=== PATIENT | male | born 1930 | race Caucasian/White ===

== ENCOUNTER 2019-05-18 20:30 | Emergency (ER) | payer MEDICARE, OTHER ==
--- OUTSIDE RECORDS SUMMARY | 2019-05-18 21:16 | XMS REPORT | Summary of Care ---
:1930 Author Organization [facility] Address 1 [facility] [address] [address] Care Team Providers Name Role Phone Osvaldo Tenorio Primary Care Provider Reason for Visit Reason Comments Heartburn f/u; s/s periodically continues Memory Loss f/u; s/s stable Nocturia f/u up 2-3 times during night to go to bathroom; periodically has issues. Neuropathy c/o bilateral legs and feet decreased feeling especially when getting up. Medication Refill need refill on lorazepam. istop | Reference #: [id number] Labs Only f/u last done :05/16/19 Encounter Details Date Type Department Care Team Description 05/17/2019 Office Visit Osvaldo Gonzalez, Urinary frequency (Primary Dx); [address] Bipolar disorder, in full remission, most recent episode hypomanic (HCC); [place] [address] [facility] Gastroesophageal reflux disease, esophagitis presence not specified; [phone] [facility] Vitamin B12 deficiency; [place] [address] Erectile dysfunction, unspecified erectile dysfunction type [phone] Allergies Active Allergy Reactions Severity Noted Date Comments Carbidopa Unknown Reaction 08/10/2018 Ciprofloxacin Hcl Unknown Reaction 08/10/2018 Erythromycin Unknown Reaction 08/10/2018 Horse-Derived Products Unknown Reaction 08/10/2018 Penicillins Unknown Reaction 08/10/2018 Sulfamethizole Unknown Reaction 08/10/2018 documented as of this encounter (statuses as of 05/17/2019) Medications Medication Sig Dispensed Refills Start End Date Status Date fexofenadine Take 60 mg by 0 Active (ALESSIO ALLERGY) mouth TWO TIMES 60 MG Oral Tab DAILY NEEDED. bisacodyl Place 10 mg per 0 Active (DULCOLAX) 10 MG rectum DAILY Rectal Suppos NEEDED. oxybutynin Take 5 mg by 0 Active (DITROPAN XL) 5 MG mouth DAILY. Oral TABLET SR 24 HR ibuprofen (MOTRIN) Take 200 mg by 0 Active 200 MG Oral Tab mouth EVERY SIX HOURS NEEDED for Pain. Vardenafil HCl Take by mouth 0 Active (LEVITRA) 20 MG DAILY Oral Tab NEEDED. polyethylene glycol Take 17 g by 0 Active (MIRALAX) Oral mouth DAILY Powder NEEDED. PSEUDOEPHEDRINE-GG Take by mouth 0 Active (MUCINEX D) 60-600 TWO TIMES DAILY MG Oral TABLET SR NEEDED. 12 HR mometasone [place] 1 [place] 0 Active (NASONEX) 50 in nose DAILY MCG/ACT Nasal NEEDED. Suspension budesonide-formoter Take 1 INHL by 0 Active ol fumarate inhalation (SYMBICORT) 80-4.5 TWICE DAILY. MCG/ACT Inhalation Aerosol calcium carbonate Take 2-3 Tabs 0 Active (TUMS) 500 MG Oral by mouth DAILY. Chew Tab Cyanocobalamin Take by mouth 0 Active (VITAMIN B-12) 1000 DAILY. MCG Oral Tab Multiple Take by mouth 0 Active Vitamins-Minerals DAILY. (CENTRUM SILVER) Oral Tab Ergocalciferol Take by mouth 0 Active (VITAMIN D2) 2000 DAILY. units Oral Tab alpha-tocopherol Take 1,000 0 Active (VITAMIN E) 1000 Units by mouth UNIT Oral Cap DAILY. Mirabegron ER Take by mouth 0 Active (MYRBETRIQ) 50 MG DAILY. Oral TABLET SR 24 HR lithium (LITHOBID) Take 1 Tab by 45 Tab 11 Active 300 MG Oral Tab CR mouth 9 DIRECTED. Alternate 300mg every other night with 600mg clotrimazole 5 drops into 30 mL 1 Active (LOTRIMIN) 1 % left ear bid 9 Apply externally Solution pantoprazole Take 1 Tab by 60 Tab 11 Active (PROTONIX) 40 MG mouth TWICE 9 Oral Tab EC DAILY. Tamsulosin HCl Take 1 Cap by 30 Cap 11 Active (FLOMAX) 0.4 MG mouth DAILY. 9 Oral Cap Vilazodone HCl Take 1 Tab by 30 Tab 11 Active (VIIBRYD) 40 MG mouth EVERY 9 Oral Tab MORNING. LORazepam (ATIVAN) Take 1 Tab by 30 Tab 0 Active 0.5 MG Oral Tab mouth DAILY 9 NEEDED (for anxiety). Max Daily Amount: 0.5 mg. Sildenafil Citrate Take 1 Tab by 18 Tab 1 Active 25 MG Oral Tab mouth DAILY 9 NEEDED (e.d.). LORazepam (ATIVAN) TAKE 1 TAB BY 30 Tab 0 05/17/20 Discontinued 0.5 MG Oral Tab MOUTH DAILY 9 19 (Reorder) NEEDED (FOR ANXIETY). MAX DAILY AMOUNT: 0.5 MG. documented as of this encounter (statuses as of 05/17/2019) Active Problems Problem Noted Date Mild intermittent asthma without complication 09/21/2018 Irritable bladder 08/14/2018 DJD (degenerative joint disease) of knee 05/19/2014 Knee pain, left 04/08/2014 Bipolar disorder, in full remission, most recent episode hypomanic Gastroesophageal reflux disease BPH without obstruction/lower urinary tract symptoms Hemangioma of skin and subcutaneous tissue Erectile dysfunction Pancytopenia Sciatica Allergic rhinitis Vitamin B12 deficiency Anxiety Muscle spasm Drug-induced tremor Difficulty walking Mild cognitive impairment Cough Constipation Depression documented as of this encounter (statuses as of 05/17/2019) Immunizations Name Administration Dates Next Due Influenza Vaccine High Dose 03/28/2019, 03/29/2018, 04/05/2017 documented as of this encounter Social History Tobacco Use Types Packs/Day Years Used Date Never Smoker Smokeless Tobacco: Never Used Alcohol Use Drinks/Week oz/Week Comments No Sex Assigned at Date Recorded Not on file Job Start Date Occupation Industry Not on file Not on file Not on file Travel History Travel Start Travel End No recent travel history available. documented as of this encounter Last Filed Vital Signs Vital Sign Reading Time Taken Comments Blood Pressure 138/68 05/17/2019 3:44 PM EST Pulse 60 05/17/2019 3:44 PM EST Temperature - - Respiratory Rate - - Oxygen Saturation - - Inhaled Oxygen Concentration - - Weight 84.8 kg (187 lb) 05/17/2019 3:44 PM EST Height - - Body Mass Index 28.43 01/18/2019 2:07 PM EDT documented in this encounter Progress Notes Osvaldo Tenorio MD - 05/17/2019 3:40 PM EST PATIENT: Jere Clark : 1930 DATE OF SERVICE: 05/17/2019 CHIEF COMPLAINT: Chief Complaint Patient presents with Heartburn f/u; s/s periodically continues Memory Loss f/u; s/s stable Nocturia f/u up 2-3 times during night to go to bathroom; periodically has issues. Neuropathy c/o bilateral legs and feet decreased feeling especially when getting up. Medication Refill need refill on lorazepam. istop | Reference #: [id number] Labs Only f/u last done :05/16/19 Subjective HISTORY OF PRESENT ILLNESS: Jere Clark is a 89-y.o. male. HPI He returns in follow-up of his multiple medical problems. He requests lorazepam which works well. He does not need very much of it. There are no side effects. Pantoprazole 40 mg twice a day helps gastroesophageal reflux, but sometimes he has breakthrough symptoms. I urged him to use Tums as needed. He has nocturia x3 and visits with Dr. Herrera and I told him that he may have difficulty getting thisto improve further since he is already on medical therapy with oxybutynin, mirabegron, and tamsulosin and I think he would be a suboptimal surgical candidate for any surgical intervention other than that which was required urgently to preserve renal function. In addition, patient complains of erectile failure and requests prescription for sildenafil. I haveordered 25 mg tablet but told him to not use it on a day he has taken tamsulosin. He needs to stop tamsulosin if he is to take the sildenafil Past Medical History: Diagnosis Date Allergic rhinitis Anxiety Bipolar disorder, in full remission, most recent episode hypomanic (HCC) BPH without obstruction/lower urinary tract symptoms Constipation Cough Depression Difficulty walking Drug-induced tremor Erectile dysfunction Gastroesophageal reflux disease Hemangioma of skin and subcutaneous tissue Left knee pain Mild cognitive impairment Muscle spasm Pancytopenia (HCC) Sciatica Vitamin B12 deficiency History reviewed. No pertinent family history. Current Outpatient Medications Medication Sig alpha-tocopherol (VITAMIN E) 1000 UNIT Oral Cap Take 1,000 Units by mouth DAILY. bisacodyl (DULCOLAX) [address] 10 mg per rectum DAILY NEEDED. budesonide-formoterol fumarate (SYMBICORT) 80-4.5 MCG/ACT Inhalation Aerosol Take 1 INHL by inhalation TWICE DAILY. calcium carbonate (TUMS) 500 MG Oral Chew Tab Take 2-3 Tabs by mouth DAILY. clotrimazole (LOTRIMIN) 1 % Apply externally Solution 5 drops into left ear bid Cyanocobalamin (VITAMIN B-12) 1000 MCG Oral Tab Take by mouth DAILY. Ergocalciferol (VITAMIN D2) 2000 units Oral Tab Take by mouth DAILY. fexofenadine (ALESSIO ALLERGY) 60 MG Oral Tab Take 60 mg by mouth TWO TIMES DAILY NEEDED. ibuprofen (MOTRIN) 200 MG Oral Tab Take 200 mg by mouth EVERY SIX HOURS NEEDED for Pain. lithium (LITHOBID) 300 MG Oral Tab CR Take 1 Tab by mouth DIRECTED. Alternate 300mg every other night with 600mg LORazepam (ATIVAN) 0.5 MG Oral Tab TAKE 1 TAB BY MOUTH DAILY NEEDED ( FOR ANXIETY). MAX DAILY AMOUNT: 0.5 MG. Mirabegron ER (MYRBETRIQ) 50 MG Oral TABLET SR 24 HR Take by mouth DAILY. mometasone (NASONEX) 50 MCG/ACT Nasal Suspension [place] 1 [place] in nose DAILY NEEDED. Multiple Vitamins-Minerals (CENTRUM SILVER) Oral Tab Take by mouth DAILY. oxybutynin (DITROPAN XL) 5 MG Oral TABLET SR 24 HR Take 5 mg by mouth DAILY. pantoprazole (PROTONIX) 40 MG Oral Tab EC Take 1 Tab by mouth TWICE DAILY. polyethylene glycol (MIRALAX) Oral Powder Take 17 g by mouth DAILY NEEDED. PSEUDOEPHEDRINE-GG (MUCINEX D) 60-600 MG Oral TABLET SR 12 HR Take by mouth TWO TIMES DAILY NEEDED. Tamsulosin HCl (FLOMAX) 0.4 MG Oral Cap Take 1 Cap by mouth DAILY. Vardenafil HCl (LEVITRA) 20 MG Oral Tab Take by mouth DAILY NEEDED. Vilazodone HCl (VIIBRYD) 40 MG Oral Tab Take 1 Tab by mouth EVERY MORNING. No current facility-administered medications for this visit. Allergies Allergen Reactions Carbidopa Unknown Reaction Ciprofloxacin Hcl Unknown Reaction Erythromycin Unknown Reaction Horse-Derived Products Unknown Reaction Penicillins Unknown Reaction Sulfamethizole Unknown Reaction Social History Socioeconomic History Marital status: Spouse name: Not on file Number of children: Not on file Years of education: Not on file Highest education level: Not on file Occupational History Not on file Social Needs Financial resource strain: Not on file Food insecurity: Worry: Not on file Inability: Not on file Transportation needs: Medical: Not on file Non-medical: Not on file Tobacco Use Smoking status: Never Smoker Smokeless tobacco: Never Used Substance and Sexual Activity Alcohol use: No Drug use: Never Sexual activity: Not on file Lifestyle Physical activity: Days per week: Not on file Minutes per session: Not on file Stress: Not on file Relationships Social connections: Talks on phone: Not on file Gets together: Not on file Attends [employer] service: Not on file Active member of club or organization: Not on file Attends meetings of clubs or organizations: Not on file Relationship status: Not on file Intimate partner violence: Fear of current or ex partner: Not on file Emotionally abused: Not on file Physically abused: Not on file Forced sexual activity: Not on file Other Topics Concern Not on file Social History Narrative Not on file REVIEW OF SYSTEMS: ROS also positive for neuropathy which is noticeable when he is sitting and when he first gets up, having to stand his feet once he gets up walking. Denies any psychological symptoms. States he is taking his lithium but recent lab work shows that his level was undetectable. We will check with pharmacy about his refill request record. It was lastprescribed in October 2018, with enough refills for a year. Objective PHYSICAL EXAM: VITALS: BP 138/68 | Pulse 60 | Wt 187 lb (84.8 kg) | BMI 28.43 kg/m Body mass index is 28.43 kg/m. Physical Exam Alert, oriented, in no acute distress. Smells of urine. Vitals as above. HEENT: unremarkable. Neck: No palpable lymphadenopathy in the submandibular, submental, anterior cervical, posterior cervical, or occipital chains, nor in the supraclavicular spaces. No JVD, thyromegaly. LUNGS: clear. HEART: Regular rate and rhythm. EXTREMITIES: no cyanosis, clubbing, or edema. MSE: Mood not sad, affect not flat. No suicidal or homicidal ideation. No abnormality in thought process or thought content. Insight and judgement good. Well kempt. Recent lab work shows CBC unremarkable except H&H slightly low at 13.8 and 41 with MCV 100 serumchemistries showed no worrisome findings except for creatinine 1.44, glucose 124. Vitamin B12 was within normal range and lithium level was undetectable ASSESSMENT / IMPRESSION: ICD-9-CM ICD-10-CM 1. Urinary frequencycontinue same medicines continue following with Dr. Herrera. Do not take tamsulosin when taking sildenafil 788.41 R35.0 2. Bipolar disorder, in full remission, most recent episode hypomanic (HCC) clinically stable but suspect nonadherence to lithium therapy since level undetectable on recent lab work. Will check with pharmacy about refill request history 296.80 F31.72 3. Gastroesophageal reflux disease, esophagitis presence not specified still symptomatic despite pantoprazole twice a day. Again there is a possibility of medication nonadherence. I told him to make sure he is taking it twice a day and to use Tums as needed 530.81 K21.9 4. Vitamin B12 deficiencytreated. Recent lab test shows B12 level within normal range at 712 266.2 E53.8 5. Erectile dysfunction, unspecified erectile dysfunction type try sildenafil at low dose, do not take with tamsulosin. I told him that his problem may be not treatable with medication given hisadvanced age 607.84 N52.9 He will continue his same treatments otherwise, and follow-up in 4 [facility] to monitor his gastroesophageal reflux and bipolar disorder. Author: Osvaldo Tenorio MD 05/17/2019 19:09 documented in this encounter Plan of Treatment Health Maintenance Due Date Last Done Comments MEDICARE ANNUAL WELLNESS VISIT 1930 ZOSTER IMMUNIZATION SERIES (1 1980 of 2) PNEUMOCOCCAL 65+YRS (1 of 2 - 1995 PCV13) DEPRESSION SCREENING 08/10/2019 08/10/2018 FALL RISK ASSESSMENT 08/10/2019 08/10/2018, 08/10/2018 INFLUENZA VACCINE Completed 03/28/2019, 03/29/2018, 04/05/2017 HPV IMMUNIZATION SERIES Aged Out No longer eligible based on patient's age to complete this topic MENINGOCOCCAL VACCINE IMM Aged Out No longer eligible based on patient's age to complete this topic documented as of this encounter Goals Goal Patient Goal Associated Recent Patient-Stated? Author Type Problems Progress Depression Depression No christopher Tenorio (PHQ-9) MD Osvaldo total score < 5 Note: This is an individualized treatment (depression) goal for Jere Clark: Displayed above is your goal for a depression screening (PHQ-9) score that would indicate good control of your depression. Keep a regular sleep schedule Lifestyle Osvaldo Cabral MD Note: This is an individualized lifestyle goal for Jere Clark: Please maintain a regular sleep schedule. This may help with some symptoms of depression. Take all prescribed medications as directed Self-management Osvaldo Cabral MD Note: This is an individualized self-management goal for Jere Clark: Please take all prescribed medications as directed. 1. Do not skip doses. If you cannot afford your medications, talk with your doctor. 2. Use a pill reminder system such as a pill box if needed. Your pharmacist can help you with this. 3. Contact your Pharmacy 5 days before your medication runs out. If you cannot take your medications for any reasons, talk with your doctor. 4. Please bring all of your medication bottles and inhalers (or a list of all your medications/inhalers) with you to every visit. Potential barriers to meeting all of your care plan goals will continue to be addressed on an ongoing basis. documented as of this encounter Results Not on filedocumented in this encounter Visit Diagnoses Diagnosis Urinary frequency - Primary Bipolar disorder, in full remission, most recent episode hypomanic (HCC) Bipolar disorder, unspecified Gastroesophageal reflux disease, esophagitis presence not specified Vitamin B12 deficiency Other B-complex deficiencies Erectile dysfunction, unspecified erectile dysfunction type documented in this encounter Insurance Payer Benefit Plan / Subscriber ID Effective Dates Phone Address Type Group MEDICARE MEDICARE PART A xxxxxxxxxx 1995-Present Medicare & B [employer]ERCIAL [employer] xxxxxxxxxx 2005-Present [employer] Guarantor Name Account Type Relation to Date of Phone Billing Patient Address Jere Clark Personal/Family 1930 [address] (Home) [address] [phone] [place], [place] (Work) [id number] documented as of this encounter"
--- OUTSIDE RECORDS SUMMARY | 2019-05-18 21:16 | XMS REPORT | Summary of Care ---
:1930 Author Organization [facility] Address [address] [facility] [place] [address] Care Team Providers Name Role Phone Osvaldo Tenorio Primary Care Provider Reason for Visit Reason Comments Heartburn wants discuss worsening Sx, takes 2-3 TUMS a day plus pantoprazole 40mg qd Peripheral Neuropathy discuss worsening numbness/tingling in hands/feet Nocturia discuss again, still urinating mult times at night, states takes myrbetriq, oxybutynin, and flomax Erectile Dysfunction discuss, states meds don't help enough Memory Loss discuss worsening memory loss Encounter Details Date Type Department Care Team Description 03/22/2019 Office Visit [place] Osvaldo [place], Gastroesophageal reflux disease, esophagitis presence not specified (Primary Dx); [address] Bipolar disorder, in full remission, most recent episode hypomanic (HCC); [place] [address] [address] [facility] Drug-induced tremor; [phone] Erectile dysfunction, unspecified erectile dysfunction type; [place] [address] Vitamin B12 deficiency; [phone] Memory loss Allergies Active Allergy Reactions Severity Noted Date Comments Carbidopa Unknown Reaction 08/10/2018 Ciprofloxacin Hcl Unknown Reaction 08/10/2018 Erythromycin Unknown Reaction 08/10/2018 Horse-Derived Products Unknown Reaction 08/10/2018 Penicillins Unknown Reaction 08/10/2018 Sulfamethizole Unknown Reaction 08/10/2018 documented as of this encounter (statuses as of 03/22/2019) Medications Medication Sig Dispensed Refills Start End [...] Oral TABLET SR NEEDED. 12 HR mometasone [place] 1 [place] 0 Active (NASONEX) 50 in nose DAILY MCG/ACT Nasal NEEDED. Suspension budesonide-formoter Take 1 INHL by 0 Active ol fumarate inhalation (SYMBICORT) 80-4.5 TWICE DAILY. MCG/ACT Inhalation Aerosol calcium carbonate Take 2-3 Tabs 0 Active (TUMS) 500 MG Oral by mouth DAILY. Chew Tab Tamsulosin HCl Take 0.4 mg by 0 Active (FLOMAX) 0.4 MG mouth DAILY. Oral Cap Vilazodone HCl Take by mouth 0 Active (VIIBRYD) 40 MG EVERY MORNING. Oral Tab Cyanocobalamin Take by mouth 0 Active [...] left ear bid 9 Apply externally Solution LORazepam (ATIVAN) TAKE 1 TAB BY 30 Tab 0 Active 0.5 MG Oral Tab MOUTH DAILY 9 NEEDED (FOR ANXIETY). MAX DAILY AMOUNT: 0.5 MG. pantoprazole Take 1 Tab by 60 Tab 11 Active (PROTONIX) 40 MG mouth TWICE 9 Oral Tab EC DAILY. pantoprazole Take 40 mg by 0 03/22/20 Discontinued (PROTONIX) 40 MG mouth DAILY. 19 (Dose Oral Tab EC Adjustment) documented as of this encounter (statuses as of 03/22/2019) Active Problems Problem Noted Date Mild intermittent [...] as of this encounter (statuses as of 03/22/2019) Immunizations Name Administration Dates Next Due Influenza Vaccine High Dose 03/29/2018, 04/05/2017 documented as of this encounter [...] of this encounter Last Filed Vital Signs Not on filedocumented in this encounter Progress Notes Osvaldo Tenorio MD - 03/22/2019 4:20 PM EDT PATIENT: Jere Clark : 1930 DATE OF SERVICE: 03/22/2019 CHIEF COMPLAINT: Chief Complaint Patient presents with Heartburn wants discuss worsening Sx, takes 2-3 TUMS a day plus pantoprazole 40mg qd Peripheral Neuropathy discuss worsening numbness/tingling in hands/feet Nocturia discuss again, still urinating mult times at night, states takes myrbetriq, oxybutynin, and flomax Erectile Dysfunction discuss, states meds don't help enough Memory Loss discuss worsening memory loss Subjective HISTORY OF PRESENT ILLNESS: Jere Clark is a 89-y.o. male. HPI He returns after failing appointment several days ago. Wants to discuss worsening heartburn. Takespantoprazole daily also needs to use Tums. We will increase pantoprazole to twice a day. He complains that his feet lose sensation and he has to stop them for a few seconds when he tries toget up after sitting for a while. Denies any numbness or tingling persisting. Also complains of memory loss and told him that it is not uncommon to have some at age 89 but that we should check a CT of his brain since this has not been done lately if at all. He takes vitamin B12 supplements, and we will check a vitamin B12 level to see if he is getting enough. He also complains of urinating frequently at night and erectile dysfunction and I told him he shouldaddress these issues with his urologist Dr. Herrera. He is already taking Myrbetriq, Ditropan, and tamsulosin. He said he tried Levitra but it did not help. When he had prior lab testing in December, his lithium level was less than 0.1 and I suspect he is nonadherence to his medical therapy. He denies this. Past Medical History: Diagnosis Date Allergic rhinitis [...] DAILY. mometasone (NASONEX) 50 MCG/ACT Nasal Suspension [place] 1 [place] in nose DAILY NEEDED. Multiple Vitamins-Minerals (CENTRUM SILVER) Oral Tab Take by mouth DAILY. oxybutynin (DITROPAN XL) 5 MG Oral TABLET SR 24 HR Take 5 mg by mouth DAILY. pantoprazole (PROTONIX) 40 MG Oral Tab EC Take 40 mg by mouth DAILY. polyethylene glycol (MIRALAX) Oral Powder Take 17 g by mouth DAILY NEEDED. PSEUDOEPHEDRINE-GG (MUCINEX D) 60-600 MG Oral TABLET SR 12 HR Take by mouth TWO TIMES DAILY NEEDED. Tamsulosin HCl (FLOMAX) 0.4 MG Oral Cap Take 0.4 mg by mouth DAILY. Vardenafil HCl (LEVITRA) 20 MG Oral Tab Take by mouth DAILY NEEDED. Vilazodone HCl (VIIBRYD) 40 MG Oral Tab Take by mouth EVERY MORNING. No current facility-administered [...] file Gets together: Not on file Attends roman catholic service: Not on file Active member of [...] Narrative Not on file REVIEW OF SYSTEMS: Review of Systems Constitutional: Positive for malaise/fatigue. HENT: Negative for congestion. Eyes: Negative for blurred vision. Respiratory: Negative for shortness of breath. Cardiovascular: Negative for chest pain. Gastrointestinal: Positive for heartburn. Negative for abdominal pain. Genitourinary: Positive for frequency. Musculoskeletal: Negative for joint pain. Skin: Negative for rash. Neurological: Positive for tingling, tremors, sensory change and focal weakness. Negative for dizziness, seizures, loss of consciousness and headaches. Endo/Heme/Allergies: Negative for polydipsia. Psychiatric/Behavioral: Positive for memory loss. The patient is nervous/ anxious. Objective PHYSICAL EXAM: VITALS: Blood pressure 118/72, pulse 60 respirations 18, afebrile. Weight 187 pounds height 68 inches Physical Exam Alert, oriented, in no acute distress. Vitals as above. HEENT: Normocephalic, atraumatic. EUGENIO, EOMI. Mouth and ears unremarkable. Neck: No palpable lymphadenopathy in the submandibular, submental, anterior cervical, posterior cervical, or occipital chains, nor in the supraclavicular spaces. No JVD, thyromegaly. LUNGS: clear. HEART: Regular rate and rhythm. ABDOMEN: positive bowel sounds, soft, nontender, no hepatosplenomegaly, masses or bruits. EXTREMITIES: no cyanosis, clubbing, or edema. Neurologic he is oriented to person place and time. Cranial nerves II through XII are grossly intact. He moves and has sensation in all his limbs. There is a resting left hand tremor noted. He has difficulty getting up to the exam table without almost losing his balance. ASSESSMENT / IMPRESSION: ICD-9-CM ICD-10-CM 1. Gastroesophageal reflux disease, esophagitis presence not specified 530.81 K21.9 2. Bipolar disorder, in full remission, most recent episode hypomanic (HCC) 296.80 F31.72 3. 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 Erectile dysfunction, unspecified erectile dysfunction type 607.84 N52.9 5. Vitamin B12 deficiency 266.2 E53.8 6. Memory loss 780.93 R41.3 We will increase pantoprazole to twice a day for his persisting heartburn. If this does not help, will refer to gastroenterology. For his bipolar disorder he will continue lithium and vilazodone His drug-induced tremor is stable He will address erectile dysfunction and urinary frequency with Dr. Herrera who he will be seeing soon He will continue vitamin B12 supplements but we will check level with next blood draw opportunity Check CT scan of the brain, no contrast for diagnosis of memory loss Orders: Draw CBC, comprehensive profile, lithium level, vitamin B12 level diagnosis gastroesophageal reflux,vitamin B12 deficiency, memory loss Order CT scan of the brain no contrast diagnosis memory loss Follow-up after those tests are completed Author: Osvaldo Tenorio MD 03/22/2019 17:40 documented in this encounter Plan of Treatment Date Type Specialty Care Team Description 05/17/2019 Office Visit Internal Medicine Osvaldo Tenorio MD [address] [place] [address] [phone] Health Maintenance Due Date Last Done Comments MEDICARE ANNUAL WELLNESS VISIT 1930 ZOSTER IMMUNIZATION SERIES (1 1980 of 2) PNEUMOCOCCAL 65+YRS (1 of 2 - 1995 PCV13) INFLUENZA VACCINE (#1) 2019 03/29/2018, 04/05/2017 DEPRESSION SCREENING 08/10/2019 08/10/2018 FALL RISK ASSESSMENT 08/10/2019 08/10/2018, 08/10/2018 HPV IMMUNIZATION SERIES Aged Out No longer [...] depression. 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
--- NOTE | 2019-05-18 21:28 | ED ---
Syncope/Near Syncope - HPI Summary HPI Summary: Patient from [facility] complains of intermittent episodes of lightheadedness starting this morning. Also complains of mild exertional SOB over the past few weeks sent for evaluation of intermittent low blood pressure. Patient evaluated by primary care 2 days ago for routine physical. Denies fever, cough, sore throat, CP, and/V/D, abdominal pain, change in urine, change in BM. Denies injury or fall. Family denies facial droop, speech change, unilateral weakness, imbalance. - History Of Current Complaint Chief Complaint: EDDizziness Hx Obtained From: Patient Onset/Duration: Gradual Onset Timing: Minutes Activity At Onset: At Rest Associated Head Trauma: No Aggravating Factor(s): Position Change Alleviating Factor(s): Spontaneous Resolution Associated Signs And Symptoms: Shortness Of Breath - Allergies/Home Medications Allergies/Adverse Reactions: Allergies Allergy/AdvReac Type Severity Reaction Status Date / Time ciprofloxacin Allergy Numbness Verified 11/10/18 15:21 Penicillins Allergy Rash Verified 11/10/18 15:21 horse serum Allergy Rash Uncoded 09/29/14 08:39 Home Medications: Home Medications Shannan (NF) 60 mg PO BID 05/18/19 [History Confirmed 05/18/19] Bisacodyl 10 mg PO SEE INSTRUCTIONS 05/18/19 [History Confirmed 05/18/19] DEBROX 6.5% Otic* 5 drop BOTH EARS SEE INSTRUCTIONS 05/18/19 [History Confirmed 05/18/19] Hydrocortisone 1% CREAM(NF) 1 applic TOPICAL SEE INSTRUCTIONS 05/18/19 [History Confirmed 05/18/19] Ibuprofen TAB* 200 mg PO SEE INSTRUCTIONS 05/18/19 [History Confirmed 05/18/19] Levitra (NF) 20 mg PO SEE INSTRUCTIONS 05/18/19 [History Confirmed 05/18/19] Miralax 17 gm PO BID 05/18/19 [History Confirmed 05/18/19] Mucinex D 600/60 (NF) 1 tab PO SEE INSTRUCTIONS 05/18/19 [History Confirmed ] Nasonex 50 mcg BOTH NARES SEE INSTRUCTIONS 05/18/19 [History Confirmed 05/18/19] Oxybutynin 5 mg PO DAILY 05/18/19 [History Confirmed 05/18/19] Pantoprazole TAB * 40 mg PO DAILY 05/18/19 [History Confirmed 05/18/19] Symbicort 80/4.5 (NF) 1 inh PO BID 05/18/19 [History Confirmed 05/18/19] Tums X-Str 500 mg PO SEE INSTRUCTIONS 05/18/19 [History Confirmed 05/18/19] PMH/Surg Hx/FS Hx/Imm Hx Endocrine/Hematology History: Denies: Hx Diabetes, Hx Thyroid Disease Cardiovascular History: Denies: Hx Hypertension Respiratory History: Denies: Hx Asthma, Hx Chronic Obstructive Pulmonary Disease (COPD) GI History: Reports: Hx Gastroesophageal Reflux Disease - WELL CONTROLLED, Hx Ulcer History: Reports: Other Problems/Disorders - PHIMOSIS Sensory History: Reports: Hx Contacts or Glasses - GLASSES, Hx Hearing Aid - BILAT Opthamlomology History: Reports: Hx Contacts or Glasses - GLASSES Psychiatric History: Reports: Hx Anxiety, Hx Depression - Surgical History Surgery Procedure, Year, and Place: bilat hip replacement 1999 Hx Anesthesia Reactions: No Infectious Disease History: No Infectious Disease History: Denies: Hx Clostridium Difficile, Hx Hepatitis, Hx Human Immunodeficiency Virus (HIV), Hx of Known/Suspected MRSA, Hx Shingles, Hx Tuberculosis, Traveled Outside the [place] in Last 30 Days - Family History Known Family History: Positive: Unknown - Patient is level 5 caveat. - Social History Alcohol Use: Rare Substance Use Type: Reports: None Hx Tobacco Use: No Smoking Status (MU): Former Smoker Review of Systems Constitutional: Negative Eyes: Negative ENT: Negative Cardiovascular: Negative Positive: Shortness Of Breath Gastrointestinal: Negative Genitourinary: Negative Musculoskeletal: Negative Skin: Negative Neurological: Negative Psychological: Normal All Other Systems Reviewed And Are Negative: Yes Physical Exam Triage Information Reviewed: Yes Vital Signs On Initial Exam: Initial Vitals Temp Pulse Resp BP Pulse Ox 98.0 F 83 17 116/82 95 05/18/19 20:42 05/18/19 20:42 05/18/19 20:42 05/18/19 20:42 05/18/19 20:42 Vital Signs Reviewed: Yes Appearance: Positive: Well-Appearing Skin: Positive: Warm Head/Face: Positive: Normal Head/Face Inspection Eyes: Positive: Normal Neck: Positive: Supple Respiratory/Lung Sounds: Positive: Clear to Auscultation Cardiovascular: Positive: IRR Abdomen Description: Positive: Nontender Musculoskeletal: Positive: Normal Neurological: Positive: Normal Psychiatric: Positive: Normal AVPU Assessment: Alert - [place] Coma Scale Best Eye Response: 4 - Spontaneous Best Motor Response: 6 - Obeys Commands Best Verbal Response: 5 - Oriented Coma Scale Total: 15 Procedures - Sedation Patient Received Moderate/Deep Sedation with Procedure: No Diagnostics - Vital Signs Vital Signs Temp Pulse Resp BP Pulse Ox 05/18/19 21:15 13 100/67 05/18/19 21:00 88 22 97 05/18/19 20:58 98 17 116/71 96 05/18/19 20:54 16 68/56 05/18/19 20:52 78 16 107/73 95 05/18/19 20:47 77 18 114/68 94 05/18/19 20:46 77 17 116/82 95 05/18/19 20:44 13 05/18/19 20:42 98.0 F 83 17 116/82 95 - Laboratory Result Diagrams: 05/18/19 21:42 05/18/19 21:41 Lab Statement: Any lab studies that have been ordered have been reviewed, and results considered in the medical decision making process. Course/Dx Course Of Treatment: Patient from [facility] complains of intermittent episodes of lightheadedness starting this morning. Also complains of mild exertional SOB over the past few weeks sent for evaluation of intermittent low blood pressure. Patient evaluated by primary care 2 days ago for routine physical. Denies fever, cough, sore throat, CP, and/V/D, abdominal pain, change in urine, change in BM. Denies injury or fall. Family denies facial droop, speech change, unilateral weakness, imbalance. Intermittent low blood pressure. Orthostatic normal. EKG heart rate 82, PACs. No PACs on prior EKGs. Creatinine 1.8 which is patient baseline. Hemoglobin 13.2and baseline. Labs otherwise unremarkable. Chest x-ray unremarkable. Discussed patient with hospitalist Dr. Peace who recommended patient be discharged. Patient advised to follow-up with primary care at [facility], return to the ED for any new or worsening symptoms. - Diagnoses Provider Diagnoses: Lightheadedness Discharge ED - Sign-Out/Discharge Documenting (check all that apply): Patient Departure - Discharge Plan Condition: Stable Disposition: HOME Patient Education Materials: Lightheadedness (ED) Referrals: Osvaldo Tenorio MD [Primary Care Provider] - Jacob Stokes DO [Medical Doctor] - Additional Instructions: Follow up with your primary care Dr Tenorio and renovator machine operator Dr. Stokes for further evaluation. Return to the ED for any new or worsening symptoms. - Billing Disposition and Condition Condition: STABLE Disposition: Home
[2019-05-18 21:48] LABS: ABS Basophils 0.1 10^3/ul (0-0.2); ABS Eosinophils 0.1 10^3/ul (0-0.6); ABS Lymphocytes 1.2 10^3/ul (1.0-4.8); ABS Monocytes 0.6 10^3/ul (0-0.8); ABS Neutrophils 3.1 10^3/ul (1.5-7.7); Eosinophil % 1.8 %; Hematocrit 39 % (42-52); Hemoglobin 13.2 g/dL (14.0-18.0); Lymphocyte % 24.2 %; Mean Corpuscular HGB Conc 34 g/dL (31-36); Mean Corpuscular Hemoglobin 34 pg (27-31); Mean Corpuscular Volume 100 fL (80-94); Mean Platelet Volume 7.9 fL (7.4-10.4); Platelet Count 154 10^3/uL (150-450); Red Blood Count 3.89 10^6 /uL (4.18-5.48); Red Cell Distribution Width 13 % (10-15); White Blood Count 5.1 10^3/uL (3.5-10.8)
[2019-05-18 22:08] LABS: Albumin 3.7 g/dL (3.2-5.2); Calcium 8.8 mg/dL (8.6-10.3); Magnesium 2.1 mg/dL (1.9-2.7); Potassium 4.2 mmol/L (3.5-5.0); Total Bilirubin 0.5 mg/dL (0.2-1.0)
[2019-05-18 22:08] LABS: Urine Appearance Clear; Urine Bilirubin Negative (Negative); Urine Blood 1+ (Negative); Urine Color Yellow; Urine Glucose Negative (Negative); Urine Ketones Negative (Negative); Urine Nitrite Negative (Negative); Urine Protein Negative (Negative); Urine Specific Gravity 1.009 (1.010-1.030); Urine Urobilinogen Negative (Negative)
[2019-05-18 22:12] LABS: Troponin I 0.01 ng/mL (<0.03)
[2019-05-18 22:14] LABS: Albumin/Globulin Ratio 1.5 (1-3); BUN/Creatinine Ratio 12.2 (8-20); CKMB ng/mL 4.9 ng/mL (0.6-6.3); EGFR African American 42.9 (>60); EGFR Non-African American 35.5 (>60); Globulin 2.4 g/dL (2-4); Total Protein 6.1 g/dL (6.4-8.9)
[2019-05-18 22:16] LABS: Urine Bacteria Absent (Absent); Urine Red Blood Cell Trace(0-2/hpf) (Absent); Urine Squamous Epithelial Cell Present (Absent); Urine White Blood Cell Trace(0-5/hpf) (Absent)
[2019-05-18 22:27] LABS: TSH (Thyroid Stimulating Horm) 0.83 mcIU/mL (0.34-5.60)
[2019-05-18 23:35] VITALS: BP 91/56
--- NOTE | 2019-05-21 06:44 | ED ---
Imaging and Labs Follow Up Follow Up Type: Labs/Cultures Labs/Culture Result: Preliminary urine culture shows 25-50,000 Proteus Mirabilis. Waiting sensitivity results. Patient Communication/Plan: Awaiting sensitivity results. Patient was asymptomatic for UTI in the emergency department. Nothing further at this time. Provider Diagnoses: Lightheadedness
== END 2019-05-18 23:52 | disposition home or self-care (01) ==
LOC: ED 20:30
DX: R42 Dizziness and giddiness (principal); R06.02 Shortness of breath; Z88.0 Allergy status to penicillin; R94.31 Abnormal electrocardiogram [ECG] [EKG]; F31.72 Bipolar disorder, in full remission, most recent episode hypomanic; D61.818 Other pancytopenia; K21.9 Gastro-esophageal reflux disease without esophagitis; Z79.899 Other long term (current) drug therapy; F41.9 Anxiety disorder, unspecified; Z87.891 Personal history of nicotine dependence
CPT/HCPCS: 36415; 71045; 80053; 81003; 81015; 82553; 83605; 83735; 83880; 84443; 84484; 85025; 87077; 87086; 87184; 87186; 93005; 99283

== ENCOUNTER 2019-12-16 15:12 | Inpatient (IN) ==
[2019-12-16] MEDS ORDERED: NS 0.9% 1000 ml BAG 1,000 ML IV ONE (15:48)
[2019-12-16 16:34] LABS: ABS Lymphocytes 0.5 10^3/ul (1.0-4.8); ABS Monocytes 0.5 10^3/ul (0-0.8); Hematocrit 40 % (42-52); Hemoglobin 13.8 g/dL (14.0-18.0); Lymphocyte % 4.8 %; Mean Corpuscular HGB Conc 35 g/dL (31-36); Mean Corpuscular Hemoglobin 35 pg (27-31); Mean Corpuscular Volume 101 fL (80-94); Mean Platelet Volume 7.5 fL (7.4-10.4); Platelet Count 170 10^3/uL (150-450); Red Blood Count 3.99 10^6 /uL (4.18-5.48); Red Cell Distribution Width 13 % (10-15); White Blood Count 10.7 10^3/uL (3.5-10.8)
[2019-12-16 16:47] LABS: INR 1.03 (0.82-1.09)
[2019-12-16 17:09] LABS: ALT 17 U/L (7-52); AST 24 U/L (13-39); Albumin/Globulin Ratio 1.4 (1-3); Alkaline Phosphatase 72 U/L (34-104); Anion Gap 7 mmol/L (2-11); BUN/Creatinine Ratio 13.4 (8-20); Blood Urea Nitrogen 20 mg/dL (6-24); CO2 Carbon Dioxide 26 mmol/L (22-32); Calcium 9.4 mg/dL (8.6-10.3); Chloride 108 mmol/L (101-111); Cholesterol 184 mg/dL; EGFR African American 53.7 (>60); EGFR Non-African American 44.4 (>60); Globulin 2.8 g/dL (2-4); Glucose 122 mg/dL (70-100); LDL Cholesterol 116 mg/dL; Potassium 4.9 mmol/L (3.5-5.0); Sodium 141 mmol/L (135-145); Total Protein 6.8 g/dL (6.4-8.9); Triglycerides 61 mg/dL
[2019-12-16 17:32] LABS: Urine Appearance Clear; Urine Bilirubin Negative (Negative); Urine Blood 2+ (Negative); Urine Color Yellow; Urine Glucose Negative (Negative); Urine Ketones Negative (Negative); Urine Nitrite Negative (Negative); Urine Protein Negative (Negative); Urine Urobilinogen Negative (Negative)
[2019-12-16 17:35] LABS: Urine Bacteria Absent (Absent); Urine Red Blood Cell Trace(0-2/hpf) (Absent); Urine Squamous Epithelial Cell Present (Absent); Urine White Blood Cell Trace(0-5/hpf) (Absent)
[2019-12-16 18:09] LABS: Troponin I 0.02 ng/mL (<0.03)
[2019-12-16 19:17] LABS: Alcohol, S < 10 mg/dL (<10)
[2019-12-16] MEDS ORDERED: Ondansetron 4 mg VIAL 2 MG/ML 2 ml VIAL IV PRN (19:20)
[2019-12-16] MEDS ORDERED: NS 0.9% 1000 ml BAG 1,000 ML IV SCH (19:30)
[2019-12-16] MEDS ORDERED: MOMETASONE INH SCH (21:00)
[2019-12-16] MEDS: Polyethylene Glycol 3350 17 GM PACKET PO SCH (21:36)
[2019-12-16] MEDS: Enoxaparin 30 MG/0.3 ML SYR(*) SUBCUT SCH (21:38)
[2019-12-16] MEDS: Mometasone/Formoter 100/5 MDI INH SCH (23:37)
[2019-12-17 06:58] LABS: ABS Lymphocytes 1.8 10^3/ul (1.0-4.8); ABS Monocytes 0.7 10^3/ul (0-0.8); Eosinophil % 0.6 %; Hematocrit 36 % (42-52); Hemoglobin 12.4 g/dL (14.0-18.0); Lymphocyte % 26.4 %; Mean Corpuscular HGB Conc 35 g/dL (31-36); Mean Corpuscular Hemoglobin 35 pg (27-31); Mean Corpuscular Volume 101 fL (80-94); Mean Platelet Volume 7.6 fL (7.4-10.4); Nucleated Red Blood Cells % 0.1; Platelet Count 154 10^3/uL (150-450); Red Blood Count 3.55 10^6 /uL (4.18-5.48); Red Cell Distribution Width 13 % (10-15); White Blood Count 6.9 10^3/uL (3.5-10.8)
[2019-12-17 07:16] LABS: BUN/Creatinine Ratio 13.4 (8-20); Calcium 8.4 mg/dL (8.6-10.3); EGFR African American 64.6 (>60); EGFR Non-African American 53.4 (>60); Potassium 4.1 mmol/L (3.5-5.0)
[2019-12-17] MEDS: Mometasone/Formoter 100/5 MDI INH SCH ×2 (08:50→20:14)
[2019-12-17] MEDS: Polyethylene Glycol 3350 17 GM PACKET PO SCH ×2 (09:36→21:30)
[2019-12-17] MEDS: CMC:Vilazodone 40 mg TAB (NF) PO SCH (09:37)
[2019-12-17] MEDS: Mirabegron 50 mg TAB (NF) 50 MG TAB PO SCH (09:37)
[2019-12-17 18:53] LABS: TSH (Thyroid Stimulating Horm) 0.36 mcIU/mL (0.34-5.60)
[2019-12-17] MEDS: Enoxaparin 30 MG/0.3 ML SYR(*) SUBCUT SCH (21:09)
[2019-12-18 03:16] LABS: ABS Eosinophils 0.1 10^3/ul (0-0.6); ABS Lymphocytes 1.7 10^3/ul (1.0-4.8); ABS Monocytes 0.5 10^3/ul (0-0.8); Eosinophil % 2.2 %; Hematocrit 37 % (42-52); Hemoglobin 12.4 g/dL (14.0-18.0); Lymphocyte % 26.7 %; Mean Corpuscular HGB Conc 34 g/dL (31-36); Mean Corpuscular Hemoglobin 34 pg (27-31); Mean Corpuscular Volume 101 fL (80-94); Mean Platelet Volume 7.6 fL (7.4-10.4); Platelet Count 152 10^3/uL (150-450); Red Blood Count 3.64 10^6 /uL (4.18-5.48); Red Cell Distribution Width 13 % (10-15); White Blood Count 6.2 10^3/uL (3.5-10.8)
[2019-12-18 03:31] LABS: BUN/Creatinine Ratio 16.3 (8-20); Calcium 8.4 mg/dL (8.6-10.3); EGFR African American 57.3 (>60); EGFR Non-African American 47.3 (>60)
[2019-12-18] MEDS: Mometasone/Formoter 100/5 MDI INH SCH ×2 (08:02→21:54)
[2019-12-18] MEDS: CMC:Vilazodone 40 mg TAB (NF) PO SCH ×2 (09:09→11:00)
[2019-12-18] MEDS: Mirabegron 50 mg TAB (NF) 50 MG TAB PO SCH (09:09)
[2019-12-18] MEDS: Polyethylene Glycol 3350 17 GM PACKET PO SCH ×3 (09:09→21:58)
[2019-12-18] MEDS ORDERED: LORazepam 2 mg VIAL 1 ml ONE (16:09)
[2019-12-18] MEDS ORDERED: LORazepam 2 mg VIAL 1 ml IV PUSH ONE (16:09)
[2019-12-18] MEDS ORDERED: Lorazepam PYXIS KEY PRN (16:09)
[2019-12-18] MEDS: Enoxaparin 30 MG/0.3 ML SYR(*) SUBCUT SCH (21:58)
[2019-12-19] MEDS ORDERED: NS 0.9% 500 ml BAG 500 ML IV ONE ×2 (03:45→04:40)
[2019-12-19 06:15] LABS: ABS Basophils 0.1 10^3/ul (0-0.2); ABS Eosinophils 0.1 10^3/ul (0-0.6); ABS Lymphocytes 1.3 10^3/ul (1.0-4.8); ABS Monocytes 0.6 10^3/ul (0-0.8); Eosinophil % 1.7 %; Hematocrit 39 % (42-52); Hemoglobin 13.2 g/dL (14.0-18.0); Lymphocyte % 21.2 %; Mean Corpuscular HGB Conc 34 g/dL (31-36); Mean Corpuscular Hemoglobin 34 pg (27-31); Mean Corpuscular Volume 101 fL (80-94); Mean Platelet Volume 7.6 fL (7.4-10.4); Platelet Count 155 10^3/uL (150-450); Red Blood Count 3.84 10^6 /uL (4.18-5.48); Red Cell Distribution Width 13 % (10-15); White Blood Count 6.4 10^3/uL (3.5-10.8)
[2019-12-19 06:38] LABS: BUN/Creatinine Ratio 14.5 (8-20); Calcium 8.5 mg/dL (8.6-10.3); EGFR Non-African American 58.7 (>60); Potassium 3.7 mmol/L (3.5-5.0)
[2019-12-19] MEDS: Mometasone/Formoter 100/5 MDI INH SCH ×2 (09:17→19:16)
[2019-12-19] MEDS: Mirabegron 50 mg TAB (NF) 50 MG TAB PO SCH (09:36)
[2019-12-19] MEDS: CMC:Vilazodone 40 mg TAB (NF) PO SCH (09:36)
[2019-12-19] MEDS: Polyethylene Glycol 3350 17 GM PACKET PO SCH ×2 (09:36→20:39)
[2019-12-19] MEDS: Enoxaparin 30 MG/0.3 ML SYR(*) SUBCUT SCH (20:38)
[2019-12-20] MEDS: Mometasone/Formoter 100/5 MDI INH SCH (08:12)
[2019-12-20] MEDS: Mirabegron 50 mg TAB (NF) 50 MG TAB PO SCH (08:42)
[2019-12-20] MEDS: Polyethylene Glycol 3350 17 GM PACKET PO SCH (08:42)
[2019-12-20] MEDS: CMC:Vilazodone 40 mg TAB (NF) PO SCH (08:42)
[2019-12-20 16:23] VITALS: BP 155/108
== END 2019-12-20 15:00 | DRG 57 ==
LOC: MEDTELE 15:12 → ED 15:12 → MEDTELE 21:34
PROVIDERS: ADMIT Internal Medicine; ATTEND Internal Medicine

== ENCOUNTER 2019-12-20 16:29 | Inpatient (IN) ==
[2019-12-20] MEDS ORDERED: Ondansetron 4 mg VIAL 2 MG/ML 2 ml VIAL IV PRN (16:42)
[2019-12-20] MEDS ORDERED: Guaifenesin/Pseudo 600/60(NF) TAB (Mucinex D) PO PRN (16:44)
[2019-12-20] MEDS: Polyethylene Glycol 3350 17 GM PACKET PO SCH (19:47)
[2019-12-20] MEDS: Enoxaparin 40 MG/0.4 ML SYR SUBCUT SCH (19:47)
[2019-12-20] MEDS: Mometasone/Formoter 100/5 MDI INH SCH (19:58)
[2019-12-21] MEDS: Mometasone/Formoter 100/5 MDI INH SCH ×2 (07:43→19:26)
[2019-12-21] MEDS: Polyethylene Glycol 3350 17 GM PACKET PO SCH ×2 (09:51→21:19)
[2019-12-21] MEDS: Mirabegron 50 mg ER TAB (NF) PO SCH (09:51)
[2019-12-21] MEDS: CMC:Vilazodone 40 mg TAB (NF) PO SCH (09:51)
[2019-12-21] MEDS: Enoxaparin 40 MG/0.4 ML SYR SUBCUT SCH (17:37)
[2019-12-22] MEDS: Mometasone/Formoter 100/5 MDI INH SCH ×2 (08:00→19:37)
[2019-12-22] MEDS: Polyethylene Glycol 3350 17 GM PACKET PO SCH ×2 (08:59→20:30)
[2019-12-22] MEDS: CMC:Vilazodone 40 mg TAB (NF) PO SCH (09:02)
[2019-12-22] MEDS: Mirabegron 50 mg ER TAB (NF) PO SCH (09:06)
[2019-12-22] MEDS: Enoxaparin 40 MG/0.4 ML SYR SUBCUT SCH (17:49)
[2019-12-23] MEDS: Mometasone/Formoter 100/5 MDI INH SCH (07:19)
[2019-12-23] MEDS: Polyethylene Glycol 3350 17 GM PACKET PO SCH (10:11)
[2019-12-23] MEDS: CMC:Vilazodone 40 mg TAB (NF) PO SCH (10:13)
[2019-12-23] MEDS: Mirabegron 50 mg ER TAB (NF) PO SCH (10:13)
[2019-12-23 12:34] VITALS: BP 127/82
== END 2019-12-23 12:35 | DRG 57 ==
LOC: MEDTELE 16:42
PROVIDERS: ADMIT Internal Medicine; ATTEND Hospitalist